=== PATIENT | male | born 1980 | race Caucasian/White ===

== ENCOUNTER 2024-08-14 21:04 | Emergency (ER) | payer OTHER ==
[~2024-08-14] VITALS: Ht 182.9 cm; Wt 86.2 kg
[2024-08-14 21:11] VITALS: BP_SYST 128; PULSE 69; RESP 16; TEMP 97.1; O2SAT 99
[2024-08-14 22:30] LABS: BILIRUBIN,URINE NEGATIVE (NEGATIVE); BLOOD, URINE 3+ (NEGATIVE); CLARITY/URINE SL CLOUDY (CLEAR); COLOR,URINE YELLOW (YELLOW); GLUCOSE,URINE NEGATIVE (NEGATIVE); KETONES,URINE NEGATIVE (NEGATIVE); LEUKOCYTE ESTERASE ,URINE NEGATIVE (NEGATIVE); NITRITE, URINE NEGATIVE (NEGATIVE); PROTEIN URINE 1+ (NEGATIVE); UROBILINOGEN,URINE 0.2 (0.2-1.0)
[2024-08-14 23:22] LABS: BACTERIA,URINE FEW /HPF (None Seen); CALCIUM OXALATE CRYSTALS,UR 0-10 /HPF (None Seen); MUCUS,URINE 2+ /LPF (None Seen); RBC,URINE 80-100 /HPF (0-3)
[2024-08-14 23:49] VITALS: BP_SYST 128; PULSE 69; RESP 16; TEMP 97.1; O2SAT 99
== END 2024-08-14 23:30 | disposition home or self-care (01) ==
LOC: SED 21:04
DX: N23 Unspecified renal colic (principal)
CPT/HCPCS: 81000; 81001; 81015; 99283